=== PATIENT | female | born 2000 | race Hispanic/Latino ===

== ENCOUNTER 2019-05-24 22:52 | Emergency (ER) | payer OTHER ==
[~2019-05-24] VITALS: Ht 160 cm; Wt 56.0 kg
[2019-05-24] MEDS ORDERED: PREN29TA4 PO (22:59)
[2019-05-25 01:21] LABS: BASO % 0.2 % (0.0-1.0); EOS # 0.1 10^3/uL (0.0-0.5); EOS % 0.9 % (0.0-3.0); HEMATOCRIT 32.6 % (36.0-47.0); HEMOGLOBIN 11.3 g/dl (12.0-15.5); LYMPH # 2.3 10^3/uL (1.5-5.0); LYMPH % 27.7 % (24.0-44.0); MEAN CORPUSCULAR HEMOGLOBIN 31.3 pg (27.0-33.0); MEAN CORPUSCULAR HGB CONC 34.7 g/dl (32.0-36.5); MEAN CORPUSCULAR VOLUME 90.3 fl (80.0-96.0); MONO # 0.7 10^3/uL (0.0-0.8); MONO % 9.1 % (0.0-5.0); NEUTROPHILS % 61.6 % (36.0-66.0); PLATELET COUNT, AUTOMATED 246 10^3/uL (150-450); RED BLOOD COUNT 3.61 10^6/uL (4.00-5.40); WHITE BLOOD COUNT 8.2 10^3/uL (4.0-10.0)
--- NOTE | 2019-05-25 01:31 | REPVR ---
PROCEDURE INFORMATION: Exam: US First Trimester, Transabdominal Exam date and time: 05/25/2019 12:46 AM Age: 18 years old Clinical indication: complicated by abdominal or pelvic pain; Right lower quadrant; First trimester; Gestational age or lmp: 14w 0d; ; Additional info: Right pelvic cramping TECHNIQUE: Imaging protocol: Real-time transabdominal obstetrical ultrasound of the maternal pelvis and a first trimester , less than 14 weeks 0 days, with image documentation. COMPARISON: No relevant prior studies available. FINDINGS: GESTATION: Gestation: There are single intrauterine fetus. Heart rate: heartbeat of 136 bpm. Placenta: Anterior placenta. Amniotic fluid: Amniotic and coelomic fluid are normal for gestational age. BIOMETRY: [place]-Rump length: [place]-rump length is 8.0 cm suggesting an age of 14 weeks 0 days. The EDC is 11/23/2019. MATERNAL: Uterus: Unremarkable. Cervix: Closed cervix measuring 3.4 cm. Intraperitoneal: No intraperitoneal free fluid. IMPRESSION: Single live intrauterine fetus with an estimated age of 14 weeks 0 days. The EDC is 11/23/2019. Electronically signed by: Edouard Lam On 05/25/2019 01:31:27 AM
[2019-05-25] MEDS ORDERED: ACETAMINOPHEN TAB 650MG DOSE (2X325MG) PO ONE (02:00)
[2019-05-25 02:32] LABS: BLOOD UREA NITROGEN 5 MG/DL (7-18); CALCIUM LEVEL 9.2 MG/DL (8.5-10.1); CARBON DIOXIDE LEVEL 26 MEQ/L (21-32); CHLORIDE LEVEL 105 MEQ/L (98-107); CREATININE FOR GFR 0.43 MG/DL (0.55-1.30); GLUCOSE, FASTING 88 MG/DL (70-100); HCG, SERUM QUANTITATIVE 41791 MIU/ML; POTASSIUM SERUM 3.8 MEQ/L (3.5-5.1); SODIUM LEVEL 136 MEQ/L (136-145)
[2019-05-25 03:46] VITALS: BP 114/64
== END 2019-05-25 03:52 | disposition home or self-care (01) ==
LOC: M ED 22:52
DX: O26.892 Other specified pregnancy related conditions, second trimester (principal); R10.2 Pelvic and perineal pain; Z3A.14 14 weeks gestation of pregnancy

== ENCOUNTER 2019-11-13 13:34 | Outpatient (CLI) | payer OTHER ==
[~2019-11-13 13:34] MED LIST: PREN29TA4 PO
--- NOTE | 2019-11-13 14:52 | IPNPDOC ---
Text Note Date of Service The patient was seen on 11/13/19. NOTE LND Triage Note S: Marielos is a 19yo at 38+1wks gestation, EDC [id number], who presents to D for labor check. She reports contractions since last night at 1900, becoming regular and painful at 0500 and now losing her mucous plug. She endorses excellent movement, denies LOF/VB. course has been uncomplicated; GBS is negative. O: VSS, afebrile, initial BP 143/81, repeat 127/84. FHR 130s, moderate variability, + accels, no decels noted CTX: q2-5 minutes, irreglar, very mild by palpation VE: /50/-3, posterior A: 19yo at 38+1wks, not in labor, Category I FHT P: Discharged home with labor, return, danger precautions Discussed early labor comfort measures f/u [id number] in clinic for LATOYA f/u in LND PRN WILDER OSBORNE CNM Nov 13, 2019 14:52
== END 2019-11-13 14:55 | disposition home or self-care (01) ==
LOC: M LDO 13:34
PROVIDERS: ATTEND Registered Nurse Maternal Newborn
DX: O47.1 False labor at or after 37 completed weeks of gestation (principal); Z3A.38 38 weeks gestation of pregnancy
CPT/HCPCS: 59025; G0378; G0463

== ENCOUNTER 2019-11-14 01:21 | Outpatient (CLI) | payer OTHER ==
[~2019-11-14] VITALS: Ht 162.6 cm; Wt 72.3 kg
[2019-11-14 01:36] VITALS: BP 138/91
--- NOTE | 2019-11-14 02:15 | IPNPDOC ---
Text Note Date of Service The patient was seen on 11/14/19. NOTE S: C/o ctx q5-7min for 2days. No LOF. No VB. +FM O: VSS, BP mildly elevated but patient upset that she is not in labor Abd NT, gravid SVE: /-3 LE: no edema, NT FHT: Cat 1, 130s, reactive, no decels, ctx q45-80uba A/P: Patient is 37wks and not in active labor. D/w patient about relaxation to help with process. VS,Fishbone, I+O VS, Fishbone, I+O Vital Signs Date Time Temp Pulse Resp B/P (MAP) Pulse Ox O2 Delivery O2 Flow Rate FiO2 11/14/19 01:36 98.9 89 18 138/91 (107) Hailee Trujillo MD Nov 14, 2019 02:15
== END 2019-11-14 02:25 | disposition home or self-care (01) ==
LOC: M LDO 01:21
PROVIDERS: ATTEND Obstetrics & Gynecology
DX: O47.1 False labor at or after 37 completed weeks of gestation (principal); Z3A.37 37 weeks gestation of pregnancy

== ENCOUNTER 2019-11-14 23:20 | Outpatient (CLI) | payer OTHER ==
--- NOTE | 2019-11-15 01:03 | IPNPDOC ---
Obstetrical Progress Note Date of Service Nov 15, 2019 Subjective 19yo at 38+3wks presenting for c/o worsening painful ctx's and back pain. This is her 3rd visit in 48hrs to L&D for c/o ctx's. Denies LOF, DFM, or VB. Objective BP 125/75, HR 93, Temp 99.1, RR 18, Pain 7/10 Assessment Heart Rate (FHR): 140 Variability: Moderate Accelerations: Positive Decelerations: None Heart Rate Tracing: Other (reactive NST) Tocometer Contractions: Yes Frequency: irregular Sterile Vaginal Examination Dilation: 3 cm Effacement (%): 80% Station: -2 Cervical Consistency: Soft Cervical Position: Posterior Postion/Presentation: Cephalic presentation Assessment and Plan Status: Reassuring Group B Streptococcus: Negative Additional Comments 19yo at 38+3wks presenting for c/o ctx's. Patient has made cervical change since last triage visit but with irregular ctx's and SVE 3/80/-2, patient in latent labor. Patient counseled on strict FKCs and labor precautions. Patient dispositioned home. All questions answered. MARTHA GARCIA DO Nov 15, 2019 01:03
== END 2019-11-15 00:35 | disposition home or self-care (01) ==
LOC: M LDO 23:20
DX: O47.1 False labor at or after 37 completed weeks of gestation (principal); Z3A.38 38 weeks gestation of pregnancy
CPT/HCPCS: 59025; G0378; G0463